=== PATIENT | female | born 1990 | race Caucasian/White ===

== ENCOUNTER 2017-05-07 01:37 | Outpatient (CLI) | payer OTHER ==
[2017-05-07 03:31] LABS: RUPTURE FETAL MEMBRANES POSITIVE (NEGATIVE)
== END 2017-05-07 06:30 | disposition home or self-care (01) ==
LOC: OBT 01:37 → L-D 01:38 → OBT 06:30
DX: O62.9 Abnormality of forces of labor, unspecified (principal); Z3A.38 38 weeks gestation of pregnancy
CPT/HCPCS: 76815; 84112

== ENCOUNTER 2017-05-08 03:04 | Inpatient (IN) | payer OTHER ==
[2017-05-08] MEDS ORDERED: MISOPROSTOL 200 MCG TAB PR (04:00)
[2017-05-08] MEDS ORDERED: LIDOCAINE 1% (MPF) 30 ML INJ INJ (04:00)
[2017-05-08] MEDS ORDERED: OXYCODONE/ACETAMINOPHEN (5/325) TAB PO (04:00)
[2017-05-08] MEDS ORDERED: OXYTOCIN 30 UNITS/LR 500 ML IV (04:00)
[2017-05-08] MEDS ORDERED: IBUPROFEN 600 MG TAB PO (04:00)
[2017-05-08] MEDS ORDERED: METHYLERGONOVINE 0.2 MG INJ IM (04:00)
[2017-05-08] MEDS ORDERED: BUTORPHANOL 2 MG INJ IV (04:00)
[2017-05-08] MEDS ORDERED: CARBOPROST 250 MCG INJ IM (04:00)
[2017-05-08 04:30] LABS: ADD MAN DIFF? NO
[2017-05-08] MEDS: LACTATED RINGER'S 1,000 ML IV (04:31)
[2017-05-08 04:33] LABS: BASOPHILS % 0.2 % (0.0-2.0); EOSINOPHILS % 0.1 % (0.0-7.0); HEMATOCRIT 41.1 % (37.0-47.0); HEMOGLOBIN 14.3 g/dl (12.0-16.0); LYMPHOCYTES # 0.7 10^3/ul (0.8-2.9); LYMPHOCYTES % 7.1 % (15.0-51.0); MEAN CORPUSCULAR HEMOGLOBIN 31.1 pg (29.0-33.0); MEAN CORPUSCULAR HGB CONC 34.8 g/dl (32.0-37.0); MEAN CORPUSCULAR VOLUME 89.3 fl (82.0-101.0); MEAN PLATELET VOLUME 11.4 fl (7.4-10.4); MONOCYTE # 0.8 10^3/ul (0.3-0.9); MONOCYTES % 7.7 % (0.0-11.0); NEUTROPHIL # 8.7 10^3/ul (1.6-7.5); PLATELET COUNT 180 10^3/UL (140-415); RED CELL DISTRIBUTION WIDTH 13.4 % (11.5-14.5)
[2017-05-08 04:33] LABS: WHITE BLOOD COUNT 10.4 10^3/ul (4.8-10.8)
[2017-05-08] MEDS: LACTATED RINGER'S 500 ML IV ×2 (04:46→07:39)
[2017-05-08 04:59] LABS: INR 0.87; PROTIME 11.9 Sec (11.9-14.9); PT RATIO 0.9
[2017-05-08 05:00] LABS: PARTIAL THROMBOPLASTIN TIME 29.2 Sec (25.0-35.0)
[2017-05-08 05:20] LABS: AMPHETAMINE/METHAMPHETAMINE Negative (NEGATIVE); BARBITURATES Negative (NEGATIVE); BENZODIAZEPINES Negative (NEGATIVE); CANNABINOIDS Negative (NEGATIVE); COCAINE Negative (NEGATIVE); OPIATES Negative (NEGATIVE)
[2017-05-08] MEDS ORDERED: FENTAnyl 2MCG/ML-ROPIV 0.2% 100 ML (05:21)
[2017-05-08 05:43] LABS: HIV 1&2 ANTIBODY NEGATIVE (NEGATIVE)
[2017-05-08 06:39] LABS: HEPATITIS B SURFACE ANTIGEN NEGATIVE (NEGATIVE)
[2017-05-08] MEDS ORDERED: LACTATED RINGER'S 500 ML IV (09:00)
[2017-05-08] MEDS: OXYTOCIN 30 UNITS/LR 500 ML IV ×3 (10:38→16:17)
[2017-05-08 15:35] LABS: RAPID PLASMA REAGIN NONREACTIVE (NR)
[2017-05-08] MEDS ORDERED: ACETAMINOPHEN 325 MG TAB PO (16:00)
[2017-05-08] MEDS ORDERED: HYDROCODONE/APAP (5/325) TAB PO ×2 (16:00)
[2017-05-08] MEDS ORDERED: OXYCODONE/ASPIRIN (4.88/325) TAB PO ×2 (16:00)
[2017-05-08] MEDS ORDERED: ONDANSETRON 4 MG INJ IV (16:00)
[2017-05-08] MEDS: WITCH HAZEL/GLYCERIN PAD PR (18:04)
[2017-05-08] MEDS: BENZOCAINE 20% 56 ML SPRAY TOP (18:04)
[2017-05-08] MEDS: LANOLIN 7 GM TUBE TOP (18:05)
[2017-05-08] MEDS: DIBUCAINE 1% 30 GM OINT TOP (18:05)
[2017-05-08] MEDS: IBUPROFEN 600 MG TAB PO (18:05)
[2017-05-09] MEDS: IBUPROFEN 600 MG TAB PO ×5 (01:25→23:56)
[2017-05-09 08:38] LABS: ADD MAN DIFF? NO
[2017-05-09 08:47] LABS: WHITE BLOOD COUNT 12.4 10^3/ul (4.8-10.8)
[2017-05-09 08:47] LABS: BASOPHILS % 0.2 % (0.0-2.0); EOSINOPHILS # 0.1 10^3/ul (0.0-0.5); EOSINOPHILS % 0.4 % (0.0-7.0); HEMATOCRIT 34.5 % (37.0-47.0); HEMOGLOBIN 11.8 g/dl (12.0-16.0); LYMPHOCYTES # 1.2 10^3/ul (0.8-2.9); LYMPHOCYTES % 9.7 % (15.0-51.0); MEAN CORPUSCULAR HEMOGLOBIN 31.7 pg (29.0-33.0); MEAN CORPUSCULAR HGB CONC 34.2 g/dl (32.0-37.0); MEAN CORPUSCULAR VOLUME 92.7 fl (82.0-101.0); MEAN PLATELET VOLUME 11.4 fl (7.4-10.4); MONOCYTE # 0.7 10^3/ul (0.3-0.9); MONOCYTES % 5.6 % (0.0-11.0); NEUTROPHIL # 10.3 10^3/ul (1.6-7.5); NEUTROPHILS % 83.1 % (39.0-77.0); PLATELET COUNT 152 10^3/UL (140-415); RED BLOOD COUNT 3.72 10^6/ul (4.20-5.40); RED CELL DISTRIBUTION WIDTH 13.8 % (11.5-14.5)
[2017-05-09] MEDS: SENNA/DOCUSATE NA (8.6MG/50MG) TAB PO ×2 (10:51→21:16)
[2017-05-10] MEDS: WITCH HAZEL/GLYCERIN PAD PR (00:02)
[2017-05-10] MEDS: DIBUCAINE 1% 30 GM OINT TOP (00:03)
[2017-05-10] MEDS: BENZOCAINE 20% 56 ML SPRAY TOP (00:03)
[2017-05-10] MEDS: IBUPROFEN 600 MG TAB PO ×2 (06:27→11:58)
[2017-05-10] MEDS: MEASLES,MUMPS,RUBELLA VACCINE INJ SC* (09:00)
[2017-05-10] MEDS: SENNA/DOCUSATE NA (8.6MG/50MG) TAB PO (09:50)
[2017-05-11] MEDS ORDERED: INFLUENZA VIRUS VACCINE 0.5 ML (DISPENSING) IM* (09:00)
== END 2017-05-10 12:25 | disposition home or self-care (01) | DRG 775 ==
LOC: OBT 03:04 → L-D 03:04 → OBT 03:48 → L-D 03:50 → PP1 14:45
PROC: 10E0XZZ Delivery of Products of Conception, External Approach (ICD-10-PCS; principal; 2017-05-08)
PROC: 0HQ9XZZ Repair Perineum Skin, External Approach (ICD-10-PCS; 2017-05-08)
DX: O70.0 First degree perineal laceration during delivery (principal); Z37.0 Single live birth; Z3A.39 39 weeks gestation of pregnancy
CPT/HCPCS: 62319; 80307; 85025; 85610; 85730; 86592; 86703; 86850; 86900; 86901; 87340; 99464